=== PATIENT | male | born 1935 | race Hispanic/Latino ===

== ENCOUNTER 2019-03-20 18:46 | Inpatient (IN) | payer SELFPAY ==
[2019-03-20 19:24] LABS: #Basophils 0.1 thou/uL (0.0-0.2); #Eosinphils 0.4 thou/uL (0.0-0.7); #Lymphocytes 1.1 thou/uL (1.20-3.40); #Monocytes 0.9 thou/uL (0.11-0.59); #Neutrophils 8.6 thou/uL (1.40-6.50); %Basophils 0.5 % (0.0-1.0); %Eosinophils 3.4 % (0.0-10.0); %Lymphocytes 9.9 % (21.0-51.0); %Monocytes 7.7 % (0.0-10.0); %Neutrophils 78.5 % (42.0-75.0); Hemoglobin 11.7 g/dL (14.0-18.0); Mean Corpuscular HGB CONC 32.5 g/dL (32.0-36.0); Mean Corpuscular Hemoglobin 31.2 pg (27.0-31.0); Mean Corpuscular Volume 96.2 fL (78.0-98.0); Mean Platelet Volume 10.3 fL (7.4-10.4); Platelet Count 149 thou/uL (130-400); RBC Distribution Width 13.8 % (11.5-14.5); Red Blood Cell (RBC) Count 3.75 mill/uL (4.70-6.10)
--- NOTE | 2019-03-20 19:31 | RAD ---
EXAM: Chest Two Views 03/20/2019 7:28 PM HISTORY: Passed out while having a bowel movement COMPARISON: February 02, 2003 FINDINGS: Heart: There is mild cardiomegaly Pulmonary vessels: There is mild pulmonary vascular congestion Costophrenic angles: Clear. Lungs: There is persistent elevation the right hemidiaphragm with right basilar atelectasis. Pneumothorax: None. Osseous structures:There is an ACDF plate involving the lower cervical spine. There is healed fractur e deformity involving the left clavicle. Additional findings: None. IMPRESSION: Mild cardiomegaly with mild pulmonary vascular congestion. Persistent elevation of the right hemidiaphragm with right basilar atelectasis and/or scarring.
[2019-03-20 19:51] LABS: ALT (SGPT) 20 U/L (8-55); AST (SGOT) 16 U/L (5-34); Albumin 3.8 g/dL (3.4-4.8); Alkaline Phosphatase 170 U/L (40-150); Anion Gap 15 mmol/L (10-20); BUN (Urea Nitrogen) 34 mg/dL (8.4-25.7); Bilirubin, Total 0.7 mg/dL (0.2-1.2); Calc. Creatinine Clearance 0 mL/min (70-130); Calcium 9.5 mg/dL (7.8-10.44); Carbon Dioxide 25 mmol/L (23-31); Chloride 105 mmol/L (98-107); Estimated GFR-MDRD 27; Globulin 2.4 g/dL (2.4-3.5); Glucose 133 mg/dL (83-110); Potassium 4.6 mmol/L (3.5-5.1); Protein, Total 6.2 g/dL (5.8-8.1); Sodium 140 mmol/L (136-145)
[2019-03-20] MEDS ORDERED: hydrALAZINE 20 MG/ML VIAL SLOW IVP SCH (21:00)
[2019-03-20] MEDS ORDERED: hydrALAZINE 20 MG/ML VIAL ONE (21:49)
[2019-03-20 22:47] LABS: Troponin I Less than 0.010 ng/mL (< 0.028)
[2019-03-20] MEDS ORDERED: Ondansetron PF 4 MG/2 ML Vial IVP PRN (23:09)
[2019-03-20] MEDS ORDERED: Acetaminophen 325 MG TAB PO PRN (23:09)
[2019-03-20] MEDS ORDERED: Ondansetron ODT 4 MG TAB SL PRN (23:09)
[2019-03-20] MEDS ORDERED: Lactated Ringer's 1,000 ML IV SCH (23:15)
[2019-03-20] MEDS ORDERED: guaiFENesin 200 MG TAB PO PRN (23:16)
[2019-03-20 23:17] VITALS: BMI 25.8
[2019-03-20] MEDS ORDERED: Bisacodyl 10 MG SUPP PR PRN (23:18)
[2019-03-20] MEDS ORDERED: Benzonatate 100 MG CAP PO PRN (23:21)
[2019-03-21 00:21] LABS: Lactic Acid 0.8 mmol/L (0.5-2.2)
--- NOTE | 2019-03-21 00:41 | HP ---
PRIMARY CARE PHYSICIAN: None. CHIEF COMPLAINT: Syncope. HISTORY OF PRESENT ILLNESS: Mr. Hernandez is an 83-year-old gentleman visiting from [place] and staying with his son locally, who presents following a syncopal episode. He apparently is nonambulatory following a previous accident causing trauma to his spine requiring surgery approximately 1 year ago. The patient requires assistance with transfer to the toilet. Apparently, he has been dealing with chronic constipation and recently treated with prune juice at home. The patient was being transferred to the toilet and had a very large bowel movement after which he immediately became diaphoretic and then slumped while sitting on the toilet and was unresponsive for 3 minutes. His son was able to wake him and he recovered quickly. He denied any chest pain. No preceding symptoms such as shortness of breath or lightheadedness. The patient states he has continued to feel well, but still feels constipated. Has been passing gas and denies any nausea or vomiting. He has reduced oral intake, which is chronic for him due to lack of appetite, but he supplements his diet with Ensure and Pedialyte. He was brought to the emergency department for further evaluation. In the emergency department, he did not undergo an EKG. He was noted to have an elevated blood pressure of 215/92, therefore given a dose of hydralazine 10 mg IV. Also treated with 500 mL of normal saline. The patient had a chest x-ray done, which showed mild cardiomegaly with mild pulmonary vascular congestion and persistent elevation of the right hemidiaphragm with right basilar atelectasis and/or scarring. Laboratory studies done included a full blood count, which was notable for white count of 11, hemoglobin of 11.7, hematocrit 36.1, platelets 149. CMP showed a sodium of 140, potassium 4.6, BUN 34, creatinine 2.31, GFR 27, glucose 133, calcium 9.5. LFTs unremarkable, however, alkaline phosphatase elevated at 170. Troponin I negative. BNP was mildly elevated at 148.6. Albumin was 3.8. PAST MEDICAL HISTORY: 1. He is known to have a history of hypertension. No known history of kidney disease or heart failure. 2. Bed bound due to previous back injury. PAST SURGICAL HISTORY: Back surgery. SOCIAL HISTORY: The patient lives in [place] and is visiting his family. Denies any smoking, alcohol use, or illicit drug use. PHYSICAL EXAMINATION: GENERAL: The patient appears well developed, well nourished, and is in no acute distress. VITAL SIGNS: Temperature 98.2, pulse 70, respirations 18, O2 saturation 99% on room air, and blood pressure 172/86. HEENT: Normocephalic and atraumatic. Pupils are equal, round, and reactive to light. Sclerae without icterus. Oropharynx is clear. Extraocular movements intact. NECK: Supple. Full range of motion. Mild discomfort to the back of his neck due to previous back injury, this is chronic. LUNGS: Notable for bilateral expiratory wheezing. CARDIAC: Regular rate and rhythm. ABDOMEN: Soft. Mild diffuse discomfort with palpation. No guarding or rigidity. No renal angle tenderness. EXTREMITIES: No lower leg swelling or edema. Reduced sensation and weakness involving the bilateral lower extremities, unchanged and associated with previous back injury. SKIN: Without rash or jaundice. INVESTIGATIONS: As mentioned above in HPI. ASSESSMENT: Mr. Hernandez is a pleasant 83-year-old gentleman with a known history of hypertension and bed-bound following a previous back injury, who requires assistance with transfer to the toilet. He presented after having what sounds like a vasovagal episode following a very large bowel movement after being treated for constipation. No blood in the stools. He still has some mild discomfort, but no abdominal bloating and has been passing flatus. No nausea or vomiting and tolerating oral intake. Following initial assessment in the emergency department, he was noted to have evidence of mild cardiomegaly with mild pulmonary vascular congestion. However, BNP is only slightly elevated in the 140s. He has wheezing on examination and denies any history of chronic obstructive pulmonary disease or previous smoking history. Saturations are normal. Also, laboratory studies were notable for a mild leukocytosis and acute kidney injury with a creatinine of 2.31 and GFR of 27 and no known history of kidney disease. The patient is being brought in for observation and further workup/investigation. PLAN: 1. Hypertension. Elevated blood pressure has been treated with hydralazine in the emergency department. We will resume home medications and monitor blood pressure. 2. Syncope. We will request syncope workup including echo, carotid Dopplers, and an EKG, which has not been done in the emergency department. It will be difficult to obtain orthostatic blood pressures given the fact that the patient is unable to stand. Further investigations as per Day Team. We will continue to trend troponins. We will add D-dimer as well. We will assess for underlying infection, i.e. urinary tract infection. 3. Acute kidney injury. We will give very gentle IV fluids. We are unsure if he has underlying chronic kidney disease, however, given the fact that his BNP was slightly elevated and there were changes concerning for heart failure on the chest x-ray, we do not want to overload with fluids. Consultation placed to Nephrology. 4. Cough. The patient with a nonproductive cough. He had wheezing on exam. We will give DuoNeb nebs, guaifenesin and Tessalon Perles. No clear evidence of pneumonia or infectious respiratory process. We will add on lactic acid and procalcitonin to laboratory studies. 5. Code status full. His surrogate decision maker is his son, Mr. Domenico Hernandez Junior. 6. The patient's case to be discussed with Dr. Jefferson for further recommendations. Job ID: [id number]
[2019-03-21 02:21] LABS: #Eosinphils 0.3 thou/uL (0.0-0.7); #Lymphocytes 1.6 thou/uL (1.20-3.40); #Neutrophils 8.3 thou/uL (1.40-6.50); %Basophils 0.4 % (0.0-1.0); %Eosinophils 2.2 % (0.0-10.0); %Lymphocytes 14.2 % (21.0-51.0); %Monocytes 8.9 % (0.0-10.0); %Neutrophils 74.4 % (42.0-75.0); Hemoglobin 11.4 g/dL (14.0-18.0); Mean Corpuscular Hemoglobin 31.9 pg (27.0-31.0); Mean Corpuscular Volume 96.6 fL (78.0-98.0); Mean Platelet Volume 10.3 fL (7.4-10.4); Platelet Count 140 thou/uL (130-400); RBC Distribution Width 13.7 % (11.5-14.5); Red Blood Cell (RBC) Count 3.58 mill/uL (4.70-6.10); White Blood Cell (WBC) Count 11.2 thou/uL (4.8-10.8)
[2019-03-21 02:45] LABS: Troponin I 0.013 ng/mL (< 0.028)
[2019-03-21 02:52] LABS: Anion Gap 14 mmol/L (10-20); BUN (Urea Nitrogen) 32 mg/dL (8.4-25.7); Calc. Creatinine Clearance 30 mL/min (70-130); Calcium 9.6 mg/dL (7.8-10.44); Carbon Dioxide 23 mmol/L (23-31); Chloride 106 mmol/L (98-107); Estimated GFR-MDRD 33; Glucose 118 mg/dL (83-110); Potassium 3.9 mmol/L (3.5-5.1); Sodium 139 mmol/L (136-145)
[2019-03-21] MEDS ORDERED: Prevnar 13-Val Conj/PF 0.5 ML SYRINGE IM ONE (04:00)
[2019-03-21 05:34] LABS: Bilirubin Negative (Negative); Blood, Urine Negative (Negative); Clarity Turbid (Clear); Glucose, Urine (Dipstick) Normal (Negative); Leukocyte 500 Leu/uL (Negative); Nitrite Negative (Negative); Protein, Urine (Dipstick) 30 mg/dL (Neg-Trace); RBC/HPF 0-3 HPF (0-3); Squamous Epithelial 0-3 HPF (0-3); Urobilinogen Normal mg/dL (Less than 2)
[2019-03-21 05:45] LABS: Bacteria/HPF 4+ HPF (None Seen); WBC/HPF 21-50 HPF (0-3)
[2019-03-21 05:46] LABS: Urine Culture Reflex Yes Yes
[2019-03-21] MEDS: Senokot S 8.6-50 MG TAB PO SCH ×2 (08:26→22:01)
[2019-03-21] MEDS: Tamsulosin HCl 0.4 MG CAP PO SCH (08:27)
--- NOTE | 2019-03-21 08:32 | ULT ---
EXAM: Carotid ultrasound HISTORY: Syncope COMPARISON: None TECHNIQUE: Multiplanar grayscale and color Doppler images were obtained in a carotid ultrasound. Spec tral analysis of the Doppler waveforms were performed. FINDINGS: No significant plaque is visualized in either internal carotid artery. No significant plaque is seen in either common carotid artery. The Doppler waveforms are normal in the visualized vessels. Peak systolic velocity in the right internal carotid artery 69 cm/s. Peak systolic velocity in the right common carotid artery 68 cm/s. The right ICA/CCA ratio is 1.0. Peak systolic velocity in the left internal carotid artery 1:30 cm/s. Peak systolic velocity in the left common carotid artery 116 cm/s. The left ICA/CCA ratio is 1.1. Both vertebral arteries demonstrate antegrade flow without focal stenosis IMPRESSION: Estimated stenosis of 50-69 % per velocity criteria in the left internal carotid artery.
--- NOTE | 2019-03-21 10:24 | ULT ---
US Renal Bilateral STANDARD: 03/21/2019 9:16 AM CLINICAL HISTORY: Chronic renal failure. STUDY: Renal ultrasound COMPARISON: None. FINDINGS: Right kidney: Not visualized secondary to bowel gas Left kidney: Echogenicity: Increased. Masses/cysts: None. Hydronephrosis: None. Calcifications: None. Length: 9.3 cm Limited visualization of the urinary bladder is unremarkable. IMPRESSION: Echogenic left kidney is likely secondary to chronic medical renal disease.
[2019-03-21] MEDS ORDERED: Polyethylene Glycol 3350 17 GM Packet PO SCH (11:45)
--- NOTE | 2019-03-21 11:48 | PDOC.HOSPP ---
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 Feeling better and back to baseline. Found to have elevated creat. - Objective Vital Signs & Weight: Vital Signs (12 hours) Temp Pulse Resp BP BP Pulse Ox 03/21/19 08:27 168/77 H 03/21/19 08:26 99.0 F 61 16 168/77 H 96 03/21/19 04:00 98.4 F 76 18 177/74 H 96 03/21/19 00:22 63 18 97 Weight Weight 170 lb I&O: 03/20/19 03/21/19 03/22/19 06:59 06:59 06:59 Intake Total 570 Output Total 450 Balance 120 Result Diagrams: 03/21/19 02:14 03/21/19 02:14 Hospitalist ROS - Medication Medications: Active Medications Generic Name Dose Route Start Last Admin Trade Name Freq PRN Reason Stop Dose Admin Albuterol/Ipratropium 3 ml 03/21/19 01:00 03/21/19 07:54 Duoneb NEB Not Given [id number] WISAM Pentoxifylline 400 mg 03/21/19 09:00 03/21/19 10:20 Trental PO 400 mg BID WISAM Administration Senna/Docusate Sodium 2 tab 03/21/19 09:00 03/21/19 08:26 Senokot S PO 2 tab BID WISAM Administration Tamsulosin HCl 0.4 mg 03/21/19 09:00 03/21/19 08:27 Flomax PO 0.4 mg DAILY WISAM Administration - Exam General Appearance: awake alert Eye: anicteric sclera ENT: normocephalic atraumatic Neck: supple, symmetric, no JVD Heart: RRR Respiratory: no wheezes, no rales, no ronchi Respiratory - other findings: fair air entry with transmitted sound Gastrointestinal: soft, non-tender, non-distended, normal bowel sounds Extremities: no cyanosis, no edema Neurological: CN's grossly intact, no new deficit Psychiatric: normal affect, A&O x 3 Hosp A/P (1) Syncope and collapse Code(s): R55 - SYNCOPE AND COLLAPSE Status: Acute (2) Constipation Code(s): K59.00 - CONSTIPATION, UNSPECIFIED Status: Acute (3) THOM (acute kidney injury) Code(s): N17.9 - ACUTE KIDNEY FAILURE, UNSPECIFIED Status: Acute (4) CKD (chronic kidney disease) stage 3, GFR 30-59 ml/min Code(s): N18.3 - CHRONIC KIDNEY DISEASE, STAGE 3 (MODERATE) Status: Acute (5) Carotid stenosis, left Code(s): I65.22 - OCCLUSION AND STENOSIS OF LEFT CAROTID ARTERY Status: Acute (6) Uncontrolled hypertension Code(s): I10 - ESSENTIAL (PRIMARY) HYPERTENSION Status: Acute (7) Paraparesis of both lower limbs Code(s): G82.20 - PARAPLEGIA, UNSPECIFIED Status: Acute - Plan Appreciate Nephrology input. Monitor BP with current antihypertensive and adjust same to get adequate BP control. Start statin and ASA for carotid atherosclerosis Start miralax bid for contipation Awaiting Echo. For discharge after echo
[2019-03-21] MEDS ORDERED: Aspirin 325 mg Enteric Coated Tablet PO SCH (12:00)
--- NOTE | 2019-03-21 12:17 | CON ---
DATE OF CONSULTATION: HISTORY OF PRESENT ILLNESS: Mr. Hernandez is an 83-year-old male, who is visiting from [place]. Yesterday, he felt weak and tired and had a near syncopal episode. We are now being consulted for his acute kidney injury/chronic renal failure. He was empirically given volume repletion with some improvement in the said renal function. REVIEW OF SYSTEMS: Positive for generalized malaise. No nausea. No vomiting. No chest pain. Denies any shortness of breath. No diarrhea. No constipation. No productive cough. No fever or chills. Appetite and energy level are decreased. No headache - the patient's son interpreted for me. MEDICATIONS: Currently on; 1. Enalapril 10 mg p.o. b.i.d. 2. Famotidine 20 mg IV daily. 3. Status post IV fluid lactated Ringer's. 4. Pentoxifylline 400 mg p.o. t.i.d. 5. Tamsulosin 0.4 mg daily. PAST MEDICAL HISTORY: Hypertension, BPH, and status post back injury with lower leg weakness. PAST SURGICAL HISTORY: No significant history. SOCIAL HISTORY: The patient lives in [place], currently visiting his son in [place]. He lives in an apartment. He is . He has nine children. Currently, no smoking. No alcohol intake. No IV drug abuse. Sedentary lifestyle. 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 Education, no formal schooling. ALLERGIES: NONE. TRAUMA: Status post right leg fracture. IMMUNIZATION: Unknown. HOSPITALIZATIONS: Please see past medical history. FAMILY HISTORY: No family history of ESRD. PHYSICAL EXAMINATION: VITAL SIGNS: Blood pressure is 172/86, heart rate 70, respiratory rate 12, temperature 98.2, and O2 saturation 99%. GENERAL: The patient is awake, alert, supine, and comfortable, not in distress. SKIN: Adequate turgor. HEENT: Pinkish conjunctivae. Anicteric sclerae. NECK: No neck mass. No carotid bruits. No JVD. CHEST: No deformities. LUNGS: Decreased breath sounds. HEART: Normal sinus rhythm. No murmur. No gallops. No rubs. ABDOMEN: Globular, soft, and nontender. No masses. EXTREMITIES: No edema. NEUROLOGIC: Decreased motor of both lower extremities. LABORATORY DATA: Laboratories of March 21, 2019, white count 11.2 and hemoglobin 11.4. Sodium 139, potassium 3.9, chloride 106, carbon dioxide 23, BUN 32, creatinine 1.94, glucose 118, and calcium 9.6. Troponin I 0.013. March 20, 2019, BUN 34 and creatinine 2.31. ASSESSMENT AND PLAN: 1. Acute kidney injury on top of a possible chronic renal failure - would hold off angiotensin-converting enzyme inhibitors/angiotensin receptor grey. Status post volume repletion. There is already an improvement with the renal function. There is no indication for any dialytic intervention with this patient. 2. Hypertension - in view of the patient's Vasotec, we will start the patient on Procardia 30 mg XL tablet daily. 3. Congestive heart failure, clinically asymptomatic. We will simply observe. Cardiac workup as needed as an outpatient. Job ID: [id number]
[2019-03-21] MEDS ORDERED: Lidocaine 5% Patch TD SCH (18:15)
[2019-03-21] MEDS: Atorvastatin Calcium 40 MG TAB PO SCH (21:58)
[2019-03-21] MEDS: Polyethylene Glycol 3350 17 GM Packet PO SCH (22:01)
[2019-03-21] MEDS: Famotidine/PF 20 mg/2ml Vial SLOW IVP SCH (22:02)
[2019-03-22] MEDS ORDERED: Ondansetron ODT 4 MG TAB PO PRN (00:06)
[2019-03-22] MEDS ORDERED: Simethicone Chewable 80 MG TAB PO PRN (00:06)
[2019-03-22] MEDS ORDERED: Ondansetron PF 4 MG/2 ML Vial IVP PRN (00:06)
[2019-03-22] MEDS ORDERED: Sodium Chloride 0.9% 500 ML IV SCH (01:30)
[2019-03-22] MEDS ORDERED: cefTRIAXone\\ROCEPHIN 1 GM in Sodium Chloride 0.9% 100 ML IVPB SCH (02:00)
[2019-03-22] MEDS ORDERED: Sodium Chloride 0.9% 500 ML IVPB SCH (02:00)
[2019-03-22 06:51] LABS: Lactic Acid 1.7 mmol/L (0.5-2.2)
[2019-03-22] MEDS ORDERED: Prevnar 13-Val Conj/PF 0.5 ML SYRINGE IM ONE (09:00)
[2019-03-22] MEDS: NIFEdipine XL 30 MG TAB PO SCH (09:02)
[2019-03-22 09:04] LABS: Albumin 3.1 g/dL (3.4-4.8); Anion Gap 15 mmol/L (10-20); BUN (Urea Nitrogen) 31 mg/dL (8.4-25.7); Calc. Creatinine Clearance 26 mL/min (70-130); Carbon Dioxide 19 mmol/L (23-31); Chloride 109 mmol/L (98-107); Estimated GFR-MDRD 28; Glucose 160 mg/dL (83-110); Phosphorus 3.3 mg/dL (2.3-4.7); Potassium 3.9 mmol/L (3.5-5.1); Sodium 139 mmol/L (136-145)
[2019-03-22 09:05] LABS: Anion Gap 14 mmol/L (10-20); BUN (Urea Nitrogen) 31 mg/dL (8.4-25.7); Calc. Creatinine Clearance 27 mL/min (70-130); Calcium 8.9 mg/dL (7.8-10.44); Carbon Dioxide 19 mmol/L (23-31); Chloride 110 mmol/L (98-107); Estimated GFR-MDRD 29; Glucose 158 mg/dL (83-110); Potassium 3.9 mmol/L (3.5-5.1); Sodium 139 mmol/L (136-145)
[2019-03-22] MEDS: Aspirin 325 mg Enteric Coated Tablet PO SCH (09:06)
[2019-03-22] MEDS: Polyethylene Glycol 3350 17 GM Packet PO SCH ×2 (09:06→21:01)
[2019-03-22] MEDS: Tamsulosin HCl 0.4 MG CAP PO SCH (09:06)
[2019-03-22] MEDS: Senokot S 8.6-50 MG TAB PO SCH ×2 (09:07→21:01)
[2019-03-22] MEDS: Sodium Chloride 0.9% 1,000 ML IV SCH ×2 (09:44→21:00)
--- NOTE | 2019-03-22 10:20 | PRG ---
DATE OF SERVICE: 03/22/2019 SUBJECTIVE: Mr. Hernandez is an 83-year-old male, who was seen for an acute kidney injury/chronic renal failure. His PURVI inhibitor/ARB was discontinued. Yesterday, he was converted to nifedipine. Last night, he developed a transient episode of hypotension. He was nauseated at that time. He was given empiric volume repletion. My plan is to at least maintain him on normal saline at least 100 mL/h. Creatinine is currently pending. Renal ultrasound did show some increasing echogenicity in the kidneys. In addition, his urinalysis did show some evidence of proteinuria. No new complaints this morning. OBJECTIVE: VITAL SIGNS: Blood pressure is 164/73, heart rate 110, temperature 99.2, respiratory rate 16, pulse ox 94%. GENERAL: He is noted to be awake, supine, somewhat lethargic, not in overt distress. HEENT: Pinkish conjunctivae. Anicteric sclerae. NECK: No neck mass. No carotid bruits. No JVD. CHEST: No deformities. LUNGS: Clear breath sounds. No wheezing. No crackles. HEART: Normal sinus rhythm. No murmur. No gallops. No rubs. ABDOMEN: Globular. Soft. Nontender. No masses. EXTREMITIES: No edema. No deformities. MEDICATIONS: Medications of March 22, 2019, reviewed. LABORATORY DATA: Laboratories of March 22, 2019, basic metabolic panel pending, lactic acid 1.7. On March 21, 2019, BUN 32, creatinine 1.94. On March 20, 2019, creatinine 2.31. ASSESSMENT AND PLAN: Acute kidney injury on top of his chronic renal failure, superimposed prerenal azotemia, continue to hold off Vasotec. We will do empiric volume repletion since the patient has decreased p.o. intake and has been having nausea. Normal saline at 100 mL/h. No indication for any dialytic intervention. Agree with current management. Job ID: [id number]
--- NOTE | 2019-03-22 10:29 | PDOC.HOSPP ---
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 Had a near syncopal episode last night after a bowel motion with BP dropping down to 90's necessitating NS bolus with improvement. Also had low grade fever last night and has been tachycardic since then. - Objective Vital Signs & Weight: Vital Signs (12 hours) Temp Pulse Resp BP BP Pulse Ox 03/22/19 09:02 108 H 158/78 H 03/22/19 08:00 99.2 F 110 H 16 164/73 H 94 L 03/22/19 07:11 94 18 94 L 03/22/19 04:00 98.5 F 104 H 16 157/60 H 95 03/21/19 23:58 98.5 F 126 H 18 92/65 96 Weight Weight 170 lb I&O: 03/21/19 03/22/19 03/23/19 06:59 06:59 06:59 Intake Total 570 740 Output Total 450 Balance 120 740 Result Diagrams: 03/21/19 02:14 03/22/19 08:34 Hospitalist ROS - Medication Medications: Active Medications Generic Name Dose Route Start Last Admin Trade Name Freq PRN Reason Stop Dose Admin Albuterol/Ipratropium 3 ml 03/21/19 01:00 03/22/19 07:11 Duoneb NEB 3 ml [id number] WISAM Administration Aspirin 325 mg 03/22/19 09:00 03/22/19 09:06 Ecotrin PO 325 mg DAILY WISAM Administration Atorvastatin Calcium 80 mg 03/21/19 21:00 03/21/19 21:58 Lipitor PO 80 mg HS WISAM Administration Famotidine 20 mg 03/21/19 21:00 03/21/19 22:02 Pepcid SLOW IVP 20 mg 2100 WISAM Administration Sodium Chloride 1,000 mls @ 100 mls/hr 03/22/19 09:00 03/22/19 09:44 Normal Saline 0.9% IV 1,000 mls .Q10H WISAM Administration Nifedipine 30 mg 03/22/19 09:00 03/22/19 09:02 Procardia Xl PO 30 mg DAILY WISAM Administration Ondansetron HCl 4 mg 03/22/19 00:06 03/22/19 00:47 Zofran IVP 4 mg Q6H PRN Administration Nausea/Vomiting Pentoxifylline 400 mg 03/21/19 09:00 03/22/19 09:06 Trental PO 400 mg BID WISAM Administration Polyethylene Glycol 17 gm 03/21/19 21:00 03/22/19 09:06 Miralax PO Not Given BID WISAM Senna/Docusate Sodium 2 tab 03/21/19 09:00 03/22/19 09:07 Senokot S PO Not Given BID WISAM Simethicone 80 mg 03/22/19 00:06 03/22/19 00:47 Mylicon Chewable PO 80 mg PCHS PRN Administration Gas Pain Sodium Chloride 10 ml 03/20/19 23:18 03/21/19 22:04 Flush - Normal Saline IVF 10 ml Q12HR PRN Administration Saline Flush Tamsulosin HCl 0.4 mg 03/21/19 09:00 03/22/19 09:06 Flomax PO 0.4 mg DAILY WISAM Administration - Exam General Appearance: awake alert Eye: anicteric sclera ENT: normocephalic atraumatic, moist mucosa Neck: supple Heart: RRR Respiratory: no wheezes, no ronchi Respiratory - other findings: fair air entry with some crackles and transmitted sound Gastrointestinal: soft, non-tender, non-distended, normal bowel sounds Extremities: no cyanosis, no edema Neurological: CN's grossly intact Neurological - other findings: paraparesis noted Psychiatric: A&O x 3 Hosp A/P (1) Sepsis Code(s): A41.9 - SEPSIS, UNSPECIFIED ORGANISM Status: Acute (2) Syncope and collapse Code(s): R55 - SYNCOPE AND COLLAPSE Status: Acute (3) Constipation Code(s): K59.00 - CONSTIPATION, UNSPECIFIED Status: Acute (4) THOM (acute kidney injury) Code(s): N17.9 - ACUTE KIDNEY FAILURE, UNSPECIFIED Status: Acute (5) CKD (chronic kidney disease) stage 3, GFR 30-59 ml/min Code(s): N18.3 - CHRONIC KIDNEY DISEASE, STAGE 3 (MODERATE) Status: Acute (6) Carotid stenosis, left Code(s): I65.22 - OCCLUSION AND STENOSIS OF LEFT CAROTID ARTERY Status: Acute (7) Uncontrolled hypertension Code(s): I10 - ESSENTIAL (PRIMARY) HYPERTENSION Status: Acute (8) Paraparesis of both lower limbs Code(s): G82.20 - PARAPLEGIA, UNSPECIFIED Status: Acute - Plan Started on antibiotic. Get CT abd/pelvis with oral contrast. Await urine culture result. Monitor BP with current antihypertensive and adjust same to get adequate BP control. Continue statin and ASA for carotid atherosclerosis Continue miralax bid for contipation Awaiting Echo report.
[2019-03-22] MEDS ORDERED: Sodium Bicarbonate Tab 325 MG TAB PO SCH (10:30)
--- NOTE | 2019-03-22 13:15 | CT ---
CT Abdomen Pelvis WO Con: 03/22/2019 10:33 AM HISTORY: Constipation COMPARISON: None. TECHNIQUE: Multiple contiguous axial images were obtained and a CT of the abdomen and pelvis without IV contrast . Oral contrast was administered. Coronal reformats were performed. FINDINGS: This examination is limited for the evaluation of solid organs and vascular structures due to the lac k of intravenous contrast. Lower Chest: within normal limits. Abdomen: Liver: within normal limits. Bile Ducts: Normal caliber. Gallbladder: No calcified gallstones. Normal caliber wall. Pancreas: within normal limits. Spleen: within normal limits. Adrenals: within normal limits. Kidneys: within normal limits. Pelvis: Reproductive Organs: No pelvic masses. Ureters: within normal limits. Bladder: within normal limits. Bowel: Normal caliber. Scattered diverticula in the colon. No significant stool retention. Normal annette endix. Mesenteric Lymph Nodes: No enlarged mesenteric lymph nodes. Peritoneum: No ascites or free air, no fluid collection. Vessels: Atherosclerotic calcifications in the aorta Retroperitoneum: within normal limits. Abdominal Wall: within normal limits. Bones: Degenerative changes in the spine. IMPRESSION: Diverticulosis
[2019-03-22] MEDS: metroNIDAZOLE 500 MG TAB PO SCH (21:01)
[2019-03-22] MEDS: Atorvastatin Calcium 40 MG TAB PO SCH (21:01)
[2019-03-22] MEDS: Famotidine/PF 20 mg/2ml Vial SLOW IVP SCH (21:01)
[2019-03-22] MEDS: Sodium Bicarbonate Tab 325 MG TAB PO SCH (21:02)
[2019-03-23] MEDS ORDERED: Lidocaine 5% Patch TD SCH ×3 (00:45→21:00)
[2019-03-23] MEDS ORDERED: cefTRIAXone\\ROCEPHIN 1 GM in Sodium Chloride 0.9% 100 ML IVPB SCH (02:00)
[2019-03-23 06:18] LABS: #Eosinphils 0.6 thou/uL (0.0-0.7); #Lymphocytes 1.7 thou/uL (1.20-3.40); #Monocytes 1.1 thou/uL (0.11-0.59); #Neutrophils 6.1 thou/uL (1.40-6.50); %Basophils 0.4 % (0.0-1.0); %Eosinophils 6.6 % (0.0-10.0); %Lymphocytes 17.3 % (21.0-51.0); %Monocytes 11.6 % (0.0-10.0); Hemoglobin 9.6 g/dL (14.0-18.0); Mean Corpuscular HGB CONC 32.8 g/dL (32.0-36.0); Mean Corpuscular Hemoglobin 32.1 pg (27.0-31.0); Mean Corpuscular Volume 97.8 fL (78.0-98.0); Mean Platelet Volume 9.9 fL (7.4-10.4); Platelet Count 128 thou/uL (130-400); RBC Distribution Width 13.7 % (11.5-14.5); Red Blood Cell (RBC) Count 2.99 mill/uL (4.70-6.10); White Blood Cell (WBC) Count 9.6 thou/uL (4.8-10.8)
[2019-03-23] MEDS: Sodium Chloride 0.9% 1,000 ML IV SCH (06:29)
[2019-03-23 06:37] LABS: Anion Gap 9 mmol/L (10-20); BUN (Urea Nitrogen) 25 mg/dL (8.4-25.7); Calc. Creatinine Clearance 30 mL/min (70-130); Calcium 8.1 mg/dL (7.8-10.44); Carbon Dioxide 21 mmol/L (23-31); Chloride 111 mmol/L (98-107); Estimated GFR-MDRD 32; Glucose 93 mg/dL (83-110); Potassium 3.6 mmol/L (3.5-5.1); Sodium 137 mmol/L (136-145)
[2019-03-23 07:45] VITALS: BP 187/87; TEMP 98.9
[2019-03-23] MEDS: Polyethylene Glycol 3350 17 GM Packet PO SCH (08:34)
[2019-03-23] MEDS: Sodium Bicarbonate Tab 325 MG TAB PO SCH (08:34)
[2019-03-23] MEDS: Senokot S 8.6-50 MG TAB PO SCH (08:35)
[2019-03-23] MEDS: NIFEdipine XL 30 MG TAB PO SCH (08:35)
[2019-03-23] MEDS: Tamsulosin HCl 0.4 MG CAP PO SCH (08:36)
[2019-03-23] MEDS: Aspirin 325 mg Enteric Coated Tablet PO SCH (08:36)
[2019-03-23] MEDS: metroNIDAZOLE 500 MG TAB PO SCH (08:36)
[2019-03-23] MEDS ORDERED: Lidocaine Patch Removal 1 EACH TOP SCH ×2 (09:00→21:00)
--- NOTE | 2019-03-23 09:16 | PDOC.EVN ---
Event Note - Event Note Event Note: Discharged home with family. Discharge summary dictated. #[id number]
--- NOTE | 2019-03-23 09:51 | PRG ---
DATE OF SERVICE: 03/23/2019 SUBJECTIVE: Mr. Hernandez is an 83-year-old male, seen by the Renal Service for his acute kidney injury on top of his chronic renal failure. We felt that he had a component of volume depletion. He was given IV volume repletion. In addition, his PURVI inhibitors were discontinued. This morning, he is feeling better. He denies any chest pain or shortness of breath. OBJECTIVE: VITAL SIGNS: Blood pressure 149/68, heart rate 84, respiratory rate 16, temperature 98.6, and pulse ox 97%. GENERAL: Noted to be awake, alert, comfortable, not in distress. SKIN: Adequate turgor. HEENT: He has pinkish conjunctivae. Anicteric sclerae. NECK: No neck mass. No carotid bruits. No JVD. CHEST: No deformities. LUNGS: Clear breath sounds. No wheezing. No crackles. HEART: Normal sinus rhythm. No murmur. No gallops. No rubs. ABDOMEN: Globular, soft, and nontender. No masses. EXTREMITIES: No edema. No deformities. MEDICATIONS: Medications of March 23, 2019, were reviewed. LABORATORY DATA: Laboratories of March 23, 2019; white count 9.6 and hemoglobin 9.6. Sodium 137, potassium 3.6, chloride 111, carbon dioxide 21, BUN 25, creatinine 1.98, glucose 93, and calcium 8.1. ASSESSMENT AND PLAN: 1. Acute kidney injury on top of his chronic renal failure, improving creatinine at 1.98. Continue supportive care. Continue to hold off PURVI inhibitors or angiotensin receptor blockers. Continue to hold any NSAIDs or diuretics. Continue supportive care. 2. Chronic renal failure. Unclear etiology, although hypertensive nephropathy is a possibility with this patient. 3. He is okay for discharge from a renal point of view. He will follow up with his outpatient pediatric oncologist back in [place]. Job ID: [id number]
--- NOTE | 2019-03-23 09:51 | DIS ---
DATE OF ADMISSION: 03/20/2019 DATE OF DISCHARGE: 03/23/2019 PRIMARY CARE PHYSICIAN: None here in the [place]. DISCHARGE DIAGNOSES: 1. Sepsis. 2. Klebsiella pneumoniae urinary tract infection. 3. Diverticulosis with presumed acute diverticulitis. 4. Diastolic heart dysfunction. 5. Acute kidney injury. 6. Chronic kidney disease, stage 3. 7. Syncope and collapse. 8. Constipation. 9. Left carotid atherosclerosis with stenosis. 10. Uncontrolled hypertension. 11. Chronic paraparesis of lower extremities. 12. Chronic bed-bound status. 13. Nausea and vomiting. CONSULTS: Nephrology. HOSPITAL COURSE: An 83-year-old male with known history of hypertension, chronic constipation, and paraparesis from previous spinal injury, who is on visit from [place] to the [facility], who developed syncope and collapse after a large bowel motion. Impression of vasovagal syncope was made, and the patient was started on IV fluid. As he was found to have acute elevation in creatinine concerning for, CKD is a reversible component. While in the hospital, the patient developed fever as well as tachycardia and leukocytosis with abdominal discomfort, nausea and vomiting. The patient reportedly had a bowel motion, following which he developed abdominal pain, fever, and acute drop in blood pressure requiring acute resuscitation with IV fluid. Impression of sepsis was made. Further evaluation showed Klebsiella pneumoniae UTI. CT scan of the abdomen showed diverticulosis. The patient was treated with IV antibiotics with improvement of symptoms. Blood pressure appreciated, and he was started back on antihypertensives. The patient also was seen by Nephrology, who recommended discontinuation of enalapril due to acute kidney injury. The patient also was found to have a metabolic acidosis and was started on sodium bicarbonate. He remained stable and was subsequently discharged home. PHYSICAL EXAMINATION: VITAL SIGNS: Temperature 98.6, pulse 84, respiratory rate 16, SpO2 of 97 on room air, and blood pressure 149/68. GENERAL: Elderly male, in no obvious distress. Afebrile. Anicteric. Acyanotic. HEENT: Normocephalic, atraumatic. Corneal opacity on the right eye noted. Oral mucosa is moist. CARDIOVASCULAR: Regular rhythm and rate with normal heart sounds 1 and 2. RESPIRATORY: Good air entry bilaterally with no obvious crackle, rhonchi, or use of accessory muscles. GI: Full, soft, nontender, nondistended with normal bowel sounds. EXTREMITIES: Grossly normal looking, atraumatic with no edema. WATER SANDER: Conscious, alert, and oriented x3 with appropriate mental status. Cranial nerves 2 through 12 are grossly intact. Power is decreased in both lower extremities. DISCHARGE DISPOSITION: Home with family. DISCHARGE CONDITION: Improved. DISCHARGE MEDICATIONS: 1. Pentoxifylline 400 mg p.o. b.i.d. 2. Flomax 0.4 mg daily. 3. Aspirin 325 mg p.o. daily. 4. Lipitor 80 mg p.o. daily. 5. Coreg 12.5 mg p.o. b.i.d. 6. Levofloxacin 750 mg p.o. every other day for 5 doses. 7. Metronidazole 500 mg t.i.d. for 10 days. 8. Nifedipine 60 mg p.o. daily. 9. MiraLax 17 g p.o. b.i.d. 10. Sodium bicarbonate 650 mg p.o. b.i.d. 11. Sennoside-docusate p.r.n. FOLLOWUP: Follow up with PCP in 1 week, with belt turner in 2 weeks. TIME SPENT: This discharge took more than 30 minutes. Job ID: [id number]
== END 2019-03-23 09:58 | disposition home or self-care (01) | DRG 682 ==
LOC: ERS 18:46 → 2SE 21:00 → OBSVTOIN 21:00
PROVIDERS: ADMIT Hospitalist; ATTEND Hospitalist
DX: N17.9 Acute kidney failure, unspecified (principal); A41.9 Sepsis, unspecified organism; N39.0 Urinary tract infection, site not specified; G82.20 Paraplegia, unspecified; K57.92 Diverticulitis of intestine, part unspecified, without perforation or abscess without bleeding; E87.2 Acidosis; R55 Syncope and collapse; K59.09 Other constipation; N18.3 Chronic kidney disease, stage 3 (moderate); I12.9 Hypertensive chronic kidney disease with stage 1 through stage 4 chronic kidney disease, or unspecified chronic kidney disease; I65.22 Occlusion and stenosis of left carotid artery; B96.1 Klebsiella pneumoniae [K. pneumoniae] as the cause of diseases classified elsewhere; Z74.01 Bed confinement status
CPT/HCPCS: 36415; 71046; 74176; 76770; 80048; 80053; 80069; 81001; 83605; 83690; 83880; 84145; 84484; 85025; 87077; 87086; 87186; 90471; 90670; 93005; 93306; 93880; 94640; 96361; 96374; G0009; J0360; J0696; J2405; J3490; J7620; S0028